=== PATIENT | female | born 1975 | race African-American/Black ===

== ENCOUNTER 2018-11-27 20:07 | Inpatient (IN) | payer OTHER ==
[~2018-11-27] VITALS: Ht 154.9 cm; Wt 106.6 kg
[~2018-11-27 20:07] MED LIST: AMIO200T PO; ASPI-1718 PO; BENA40TA PO; CARV12.5 PO; DIGO0.122 PO; FLUO-387 PO; FURO-570 PO; POTA10TE30 PO; SIMV10TA1 PO
[2018-11-27 20:18] VITALS: BP 123/8
--- NOTE | 2018-11-27 20:30 | NUR ---
PT AMBULATED TO BED 11
--- NOTE | 2018-11-27 20:35 | NUR ---
PT BROUGHT TO ER FOR C/O OF CHEST PAIN SINCE MIDNIGHT. PAIN LEVEL 10/10 X 20 HOURS. RIGHT STERNAL PAIN RADIATING TO RIGHT NECK, SHOULDER, ARM, AND RIGHT INGUINAL AREA. NO SOB/DYSPNEA NOTED. NO N/V. MEDHX: CHF, A.FIB. HTN AND PACEMAKER. HOB ELEVATED, BED IN LOWEST POSITION, BEDRAIL UP X1. WAITING FOR ERMD TO EVALUATE.
[2018-11-27] MEDS ORDERED: diphenhydrAMINE 50 MG/ML VIAL IVP ONE (20:55)
[2018-11-27] MEDS ORDERED: ASPIRIN 325 MG TAB PO ONE (20:55)
[2018-11-27] MEDS ORDERED: ONDANSETRON 4 MG/2 ML VIAL IVP ONE (20:55)
[2018-11-27] MEDS ORDERED: fentaNYL 0.05 MG/ML VIAL IVP ONE ×2 (20:55→22:35)
[2018-11-27] MEDS ORDERED: NITROGLYCERIN 0.4 MG TAB SL ONE (20:55)
[2018-11-27 21:35] LABS: BASOPHILS # (AUTO) 0.1 K/uL (0.00-0.22); BASOPHILS % (AUTO) 0.7 % (0.0-2.0); EOSINOPHILS # (AUTO) 0.3 K/uL (0-0.4); EOSINOPHILS % (AUTO) 3.4 % (0.0-4.0); HEMATOCRIT 35.2 % (36-48); HEMOGLOBIN 11.3 g/dL (12.0-16.0); LYMPHOCYTES % (AUTO) 20.9 % (20.5-51.1); MEAN CORPUSCULAR HEMOGLOBIN 27 pg (27-31); MEAN CORPUSCULAR HGB CONC 32 g/dL (33-37); MEAN CORPUSCULAR VOLUME 84.9 fL (80-94); NEUTROPHILS # (AUTO) 6.3 K/uL (1.8-7.7); PLATELET COUNT (AUTO) 230 K/uL (140-450); RED BLOOD CELL COUNT(AUTO) 4.14 MIL/uL (4.20-5.40); RED CELL DISTRIBUTION WIDTH 16.9 % (11.6-13.7); WHITE BLOOD COUNT (AUTO) 9.7 K/uL (4.8-10.8)
[2018-11-27 21:45] LABS: ANION GAP 11.2 (8-16); CARBON DIOXIDE 25.7 mmol/L (21-32); CREATININE 1.2 mg/dL (0.6-1.3); POTASSIUM 3.9 mmol/L (3.5-5.1)
[2018-11-27 21:50] LABS: ALBUMIN 3.7 g/dL (3.4-5.0); TOTAL BILIRUBIN 0.6 mg/dL (0.0-1.0)
--- NOTE | 2018-11-27 21:50 | NUR ---
PT IN BED RESTING, EYES OPEN. PAIN REDUCED /10. NO CHEST PAIN, SOB, N/V. ERMD AWARE. WILL CONTINUE TO MONITOR
[2018-11-27 22:02] LABS: CREATINE KINASE MB 1.8 ng/mL (0-3.6)
--- NOTE | 2018-11-27 22:17 | NUR ---
MED REC, PT DOES NOT REMEMBER HOME MEDS
--- NOTE | 2018-11-27 22:45 | NUR ---
PT C/O OF PAIN RETURNING, 01/11. FENTANYL GIVEN PER MD ORDERS. VSS
--- NOTE | 2018-11-27 23:00 | NUR ---
PT IN BED RESTING, EYES OPEN. VSS. PAIN 12/11, NO SOB/DYSPNEA. NO N/V. ERMD AWARE. WILL CONTINUE TO MONITOR.
[2018-11-27 23:01] VITALS: BP 124/49
--- NOTE | 2018-11-27 23:07 | NUR ---
RECEIVED BEDSIDE REPORT FROM TV NEWS DIRECTOR, PATIENT AMBULATORY TO BED, STEADY GAIT, SKIN INTACT, IV IN RIGHT FA 22G, SL, DRESSING INTACT. ADMISSION QUESTIONS ANSWERED, MRSA SCREEN COLLECTED AND SENT TO LAB, V/S TAKEN ALL STABLE. CALL LIGHT WITHIN REACH, WILL CONTINUE TO MONITOR.
--- NOTE | 2018-11-27 23:07 | NUR ---
REPORT GIVEN AND CARE TRANSFERED TO [facility], RN ROOM 120 B. TRANSFER VIA [id number]. VSS. Addendum: 11/28/18 at 0533 by [email or web address] REPORT GIVEN AND CARE TRANSFERED TO [facility], RN ROOM 120 B. TRANSFER VIA GURNEY. VSS. PAIN 09/11 AND TOLERABLE.
--- NOTE | 2018-11-27 23:42 | NUR ---
CALLED DR DAVIS, STATED HE WILL PUT IN ORDERS, AND CONTINUE HOME MEDICATIONS.
[2018-11-27] MEDS ORDERED: LORazepam 1 MG TAB PO PRN (23:45)
[2018-11-27] MEDS ORDERED: ZOLPIDEM 5 MG TAB PO PRN (23:45)
[2018-11-27] MEDS ORDERED: PROMETHAZINE 25 MG/ML VIAL IVP PRN (23:45)
[2018-11-27] MEDS ORDERED: ACETAMINOPHEN 325 MG TAB PO PRN (23:45)
[2018-11-27] MEDS ORDERED: NITROGLYCERIN 0.4 MG TAB SL PRN (23:45)
--- NOTE | 2018-11-28 00:19 | NUR ---
GAVE PATIENT URINE COLLECTION CUP FOR UA AND DRUG SCREEN, PATIENT VERBALIZED UNDERSTANDING.
--- NOTE | 2018-11-28 00:46 | NUR ---
PATIENT C/O PAIN WANTS DILAUDID AND BENADRYL. WILL CALL DR DAVIS.
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
--- NOTE | 2018-11-28 01:20 | NUR ---
NOTIFIED DR DAVIS THAT PATIENT IS LEAVING AMA, DR DAVIS STATED "OKAY LET HER GO". NOTIFIED CHARGE NURSE BRIAN, NOTIFIED [employer] SITE MONITOR PERLA. D/C IV IN RIGHT FA 22 G, CATH INTACT, PATIENT SIGNED AMA FORM.
--- NOTE | 2018-11-28 01:28 | NUR ---
PATIENT [id number], DENIES CHEST PAIN AT THIS TIME, PATIENT LEFT VIA PRIVATE VEHICLE, PATIENT STABLE.
[2018-11-28] MEDS ORDERED: SODIUM CHLORIDE FLUSH 10 ML SYR IVF SCH (05:00)
[2018-11-28 05:22] VITALS: BP 124/49
[2018-11-28] MEDS ORDERED: FUROSEMIDE 40 MG TAB PO SCH (09:00)
[2018-11-28] MEDS ORDERED: DIGOXIN 0.125 MG TAB PO SCH (09:00)
[2018-11-28] MEDS ORDERED: POTASSIUM CHLORIDE 10 MEQ TABER PO SCH (09:00)
[2018-11-28] MEDS ORDERED: AMIODARONE 200 MG TAB PO SCH (09:00)
[2018-11-28] MEDS ORDERED: BENAZEPRIL 20 MG TAB PO SCH (09:00)
[2018-11-28] MEDS ORDERED: ECOTRIN 81 MG TABEC PO SCH (09:00)
[2018-11-28] MEDS ORDERED: FLUoxetine 20 MG CAP PO SCH (09:00)
[2018-11-28] MEDS ORDERED: CARVEDILOL 12.5 MG TAB PO SCH (09:00)
[2018-11-28] MEDS ORDERED: SIMVASTATIN 10 MG TAB PO SCH (21:00)
== END 2018-11-28 01:19 | disposition left against medical advice (07) | DRG 198 ==
LOC: MED 20:07 → MTU 22:25
PROVIDERS: ADMIT Internal Medicine Pulmonary Disease; ATTEND Internal Medicine Pulmonary Disease
DX: R07.89 Other chest pain (principal); I25.2 Old myocardial infarction; I11.0 Hypertensive heart disease with heart failure; I50.9 Heart failure, unspecified; E11.9 Type 2 diabetes mellitus without complications; I48.91 Unspecified atrial fibrillation; F17.210 Nicotine dependence, cigarettes, uncomplicated; Z79.01 Long term (current) use of anticoagulants; Z95.2 Presence of prosthetic heart valve; Z95.0 Presence of cardiac pacemaker; Z88.5 Allergy status to narcotic agent; Z91.013 Allergy to seafood; Z79.82 Long term (current) use of aspirin; Z79.899 Other long term (current) drug therapy; Z53.21 Procedure and treatment not carried out due to patient leaving prior to being seen by health care provider
CPT/HCPCS: 36415; 71045; 80053; 81025; 82550; 82553; 83690; 84484; 85025; 87081; 93005; 96361; 96374; 96375; 96376; 99285; 99291; J1200; J2405; J3010; J7030; J7120

== ENCOUNTER 2019-03-27 00:20 | Emergency (ER) | payer OTHER ==
[~2019-03-27] VITALS: Ht 154.9 cm; Wt 113.4 kg
[2019-03-27 00:25] VITALS: BP 134/74
--- NOTE | 2019-03-27 00:25 | NUR ---
TO BED # 02 VIA WHEEL CHAIR
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
--- NOTE | 2019-03-27 01:31 | NUR ---
PT RESTING IN BED WITH EYES CLOSED. VSS AT THIS TIME. WILL CONTINUE TO MONITOR.
[2019-03-27 01:33] VITALS: BP 130/74
--- NOTE | 2019-03-27 02:42 | NUR ---
PT LAYING IN BED ON PHONE. STATES 10/10 GENERALIZED BODY PAIN. MD MADE AWARE. WILL CONTINUE TO MONITOR.
[2019-03-27] MEDS ORDERED: fentaNYL 0.05 MG/ML VIAL IM ONE (03:05)
--- NOTE | 2019-03-27 03:26 | NUR ---
PT STATES NO PAIN RELIEF AFTER MEDICATIONS. DR DOZIER MADE AWARE. WILL CONTINUE TO MONITOR.
--- NOTE | 2019-03-27 03:42 | NUR ---
Dr. Barajas examining patient.
--- NOTE | 2019-03-27 03:50 | NUR ---
PT SENT HOME WITH PRESCRIPTION FOR [place].
--- NOTE | 2019-03-27 03:50 | NUR ---
Patient does not wish to proceed with medical care recommended by DR DOZIER. Patient given information related to possible complications, up to and including , which could occur as a result of leaving hospital at this time. Patient verbalizes understanding of risks involved leaving against medical advice. Patient has signed AMA form.
== END 2019-03-27 03:50 | disposition left against medical advice (07) ==
LOC: MED 00:20
DX: M79.18 Myalgia, other site (principal); I11.0 Hypertensive heart disease with heart failure; I50.9 Heart failure, unspecified; I48.91 Unspecified atrial fibrillation; Z95.0 Presence of cardiac pacemaker; Z98.890 Other specified postprocedural states; Z95.4 Presence of other heart-valve replacement; F17.210 Nicotine dependence, cigarettes, uncomplicated; Z79.899 Other long term (current) drug therapy; Z79.82 Long term (current) use of aspirin; Z88.5 Allergy status to narcotic agent
CPT/HCPCS: 96372; 99283; J3010

== ENCOUNTER 2020-03-06 21:56 | Emergency (ER) | payer OTHER ==
[~2020-03-06] VITALS: Ht 165.1 cm; Wt 81.6 kg
[~2020-03-06 21:56] MED LIST changes: -ASPI-1718 PO; +ASPI-1822 PO
[2020-03-06 22:04] VITALS: BP 147/97
[2020-03-06] MEDS ORDERED: fentaNYL citrate 0.05 MG/ML VIAL IM ONE (23:30)
[2020-03-06] MEDS ORDERED: KETOROLAC 30 MG/ML VIAL IM ONE (23:30)
[2020-03-07 01:15] VITALS: BP 155/89
== END 2020-03-07 01:15 | disposition home or self-care (01) ==
LOC: MED 21:56
DX: R05 Cough (principal); M79.10 Myalgia, unspecified site; R09.81 Nasal congestion; R07.9 Chest pain, unspecified; I11.0 Hypertensive heart disease with heart failure; Z88.5 Allergy status to narcotic agent; Z79.899 Other long term (current) drug therapy; Z95.0 Presence of cardiac pacemaker
CPT/HCPCS: 71045; 93005; 96372; 99285; J1885; J3010; Q0092; U0003